=== PATIENT | female | born 1935 ===

== ENCOUNTER 2017-04-11 07:42 | Day surgery (SDC) | payer MEDICARE ==
[2017-04-05 11:02] VITALS: BMI 26.5
[2017-04-11 08:11] VITALS: TEMP 97.5
[2017-04-11] MEDS ORDERED: Propofol 10 mg/ml Inj (20 ML) ONE (09:58)
[2017-04-11] MEDS ORDERED: Lidocaine 2% Inj (20ml) ONE (09:58)
[2017-04-11] MEDS ORDERED: Sodium Chloride 0.9% 1,000 ML IV SCH (10:30)
[2017-04-11 10:41] VITALS: RESP 16
[2017-04-11 11:39] VITALS: PULSE 67; O2SAT 97
[2017-04-11 12:00] VITALS: BP 176/64
== END 2017-04-11 12:40 | disposition home or self-care (01) ==
LOC: ENDO 07:42
PROVIDERS: ATTEND Internal Medicine Gastroenterology
DX: K25.9 Gastric ulcer, unspecified as acute or chronic, without hemorrhage or perforation (principal); K29.50 Unspecified chronic gastritis without bleeding; K44.9 Diaphragmatic hernia without obstruction or gangrene; K29.80 Duodenitis without bleeding; I25.10 Atherosclerotic heart disease of native coronary artery without angina pectoris; I10 Essential (primary) hypertension; Z86.73 Personal history of transient ischemic attack (TIA), and cerebral infarction without residual deficits
CPT/HCPCS: 43235; J2704; J7040

== ENCOUNTER 2017-05-13 12:20 | Emergency (ER) | payer MEDICARE ==
[2017-05-13 12:39] VITALS: BMI 25.2
[2017-05-13 12:42] VITALS: RESP 18; TEMP 98
[2017-05-13 13:29] LABS: BASO # 0.01 K/mm3 (0.0-2.0); BASO % 0.2 % (0.0-3.0); EOS # 0.1 (0.0-0.7); EOS % 0.9 % (1.5-5.0); GRAN # 3.79 (1.4-6.5); GRAN % 67.3 % (50.0-68.0); HEMATOCRIT 41.5 % (36.0-48.0); LYMPH # 1.3 (1.2-3.4); LYMPH % 23.8 % (22.0-35.0); MEAN CELL VOLUME 89.6 fl (80.0-105.0); MEAN CORPUSCULAR HEMOGLOBIN 30.9 pg (25.0-35.0); MEAN CORPUSCULAR HGB CONC 34.5 g/dl (31.0-37.0); MEAN PLATELET VOLUME 9.6 fl (7.0-11.0); MONO # 0.4 (0.1-0.6); MONO % 7.8 % (1.0-6.0); RED CELL DISTRIBUTION WIDTH 13.3 % (11.5-14.5); WHITE BLOOD COUNT 5.6 10^3/ul (4.5-11.0)
[2017-05-13 14:13] LABS: ALB/GLOB RATIO 1.2 (1.1-1.8); ALKALINE PHOSPHATASE 101 U/L (38-126); ALT/SGPT 30 U/L (7-56); AST/SGOT 29 U/L (14-36); BILIRUBIN,TOTAL 0.3 mg/dL (0.2-1.3); BLOOD UREA NITROGEN 21 mg/dL (7-21); CALCIUM 9.3 mg/dL (8.4-10.5); CARBON DIOXIDE 31 mmol/L (21-33); CHLORIDE 99 mmol/L (98-107); GFR AFRICAN-AMERICAN > 60; GLUCOSE,RANDOM 96 mg/dL (70-110); POTASSIUM 4.3 mmol/L (3.6-5.0); SODIUM 140 mmol/L (132-148); TOTAL PROTEIN 7.8 g/dL (5.8-8.3)
[2017-05-13 14:25] LABS: TROPONIN I < 0.01 ng/mL
--- NOTE | 2017-05-13 14:30 | ED PDOC ---
Arrival/HPI - General Chief Complaint: High Blood Pressure Time Seen by Provider: 05/13/17 12:43 Historian: Patient - History of Present Illness Narrative History of Present Illness (Text): 05/13/17 14:27 A 81 year old female, whose past medical history includes hypertension, sciatica , and UTI, presents to the emergency department for elevated blood pressure and headache, which began last night. The patient admits to not monitoring her blood pressure at home and she states she hasn't taken her blood pressure medication yet today. The patient denies any chest pain, shortness of breath, dizziness, no changes in vision, or any other complaints at this time. Time/Duration: 24 hours (x last night) Symptom Onset: Sudden Symptom Course: Unchanged Activities at Onset: Light Context: Home Past Medical History - Provider Review Nursing Documentation Reviewed: Yes - Infectious Disease Hx of Infectious Diseases: None - Reproductive Menopause: Yes - Cardiac Hx Hypertension: Yes - Pulmonary Hx Respiratory Disorders: Yes Other/Comment: Sarcodosis - Neurological Hx Neurological Disorder: No - HEENT Hx HEENT Disorder: No - Renal Hx Renal Disorder: No - Endocrine/Metabolic Hx Endocrine Disorders: No - Hematological/Oncological Hx Blood Transfusions: No Hx Blood Transfusion Reaction: No - Musculoskeletal/Rheumatological Hx Musculoskeletal Disorders: No - Gastrointestinal Hx Gastrointestinal Disorders: Yes Hx Gastroesophageal Reflux: Yes - Genitourinary/Gynecological Hx Genitourinary Disorders: No - Psychiatric Hx Anxiety: Yes Hx Depression: Yes Hx Physical Abuse: No Hx Substance Use: No - Surgical History Hx Hysterectomy: Yes Hx Tonsillectomy: Yes - Anesthesia Hx Anesthesia Reactions: No Hx Malignant Hyperthermia: No - Suicidal Assessment Feels Threatened In Home Enviroment: No Family/Social History - Physician Review Nursing Documentation Reviewed: Yes Family/Social History: No Known Family HX Smoking Status: Never Smoked Hx Alcohol Use: No Hx Substance Use: No Allergies/Home Meds Allergies/Adverse Reactions: Allergies Penicillins Allergy (Intermediate, Verified 05/13/17 12:42) RASH Home Medications: Home Meds Medication Instructions Recorded Confirmed Carvedilol [Coreg] 25 mg PO DAILY 03/19/15 05/13/17 Rosuvastatin Calcium [Crestor] 10 mg PO DAILY 03/19/15 05/13/17 Clopidogrel [Plavix] 75 mg PO DAILY 04/11/17 05/13/17 Ranitidine HCl [Acid [employer]er 150] 150 mg PO BID 04/11/17 05/13/17 Valsartan [Valsartan] 320 mg PO DAILY 04/11/17 05/13/17 Alprazolam [Xanax] 0.5 mg PO BID 05/13/17 05/13/17 Ergocalciferol (Vitamin D2) 50,000 units PO QWK 05/13/17 05/13/17 [Vitamin D2] Mirtazapine [Remeron] 15 mg PO HS 05/13/17 05/13/17 amLODIPine [Norvasc] 2.5 mg PO DAILY 05/13/17 05/13/17 Review of Systems - Physician Review All systems were reviewed & negative as marked: Yes - Review of Systems Constitutional: Other (High blood pressure ). absent: Fevers Eyes: absent: Vision Changes Respiratory: absent: SOB, Cough Cardiovascular: absent: Chest Pain Gastrointestinal: absent: Abdominal Pain Neurological: Headache. absent: Dizziness Physical Exam Vital Signs Reviewed: Yes Vital Signs Temp Pulse Resp BP Pulse Ox 05/13/17 15:05 64 18 179/70 H 98 05/13/17 12:38 98 F 94 H 18 197/84 H 99 05/13/17 12:21 62 16 179/62 H 94 L Temperature: Afebrile Blood Pressure: Hypertensive Pulse: Regular Respiratory Rate: Normal Appearance: Positive for: Well-Appearing, Non-Toxic, Comfortable Pain Distress: None Mental Status: Positive for: Alert and Oriented X 3 - Systems Exam Head: Present: Atraumatic, Normocephalic Pupils: Present: PERRL Extroacular Muscles: Present: EOMI Conjunctiva: Present: Normal Mouth: Present: Moist Mucous Membranes Neck: Present: Normal Range of Motion Respiratory/Chest: Present: Clear to Auscultation, Good Air Exchange. No: Respiratory Distress, Accessory Muscle Use Cardiovascular: Present: Regular Rate and Rhythm, Normal S1, S2. No: Murmurs Abdomen: Present: Normal Bowel Sounds. No: Tenderness, Distention, Peritoneal Signs Back: Present: Normal Inspection Upper Extremity: Present: Normal Inspection. No: Cyanosis, Edema Lower Extremity: Present: Normal Inspection. No: Edema Neurological: Present: GCS=15, CN II-XII Intact, Speech Normal Skin: Present: Warm, Dry, Normal Color. No: Rashes Psychiatric: Present: Alert, Oriented x 3, Normal Insight, Normal Concentration Medical Decision Making ED Course and Treatment: 05/13/17 14:28 Impression: A 81 year old female with elevated blood pressure. Differential Diagnosis included but are not limited to: Plan: -- EKG -- Head CT -- Zofran -- Urinalysis -- Reassess and disposition Prior Visits: Notes and results from previous visits were reviewed. The patient was last seen in the emergency department on 04/27/15 for back pain. The patient was discharged home. Progress Notes: EKG: Ordered, reviewed, and independently interpreted the EKG. Rate : 64 BPM Rhythm : LBBB Interpretation : No ST-segment elevations or depressions, no T-wave inversions, normal intervals. Comparison : No previous EKG for comparison. 05/13/17 15:02 Re-evaluation: Upon re-evaluation, the patient states she is feeling much better. Labs and CT were reviewed. I will be discharging the patient with a prescription of antibiotics for current UTI. Patient is recommend to follow up with her primary doctor. - Lab Interpretations Lab Results: 05/13/17 13:15 05/13/17 13:35 Lab Results 05/13/17 14:42: Urine Color Light yellow, Urine Appearance Sl cloudy, Urine pH 7.0, Ur Specific [place] 1.015, Urine Protein Trace H, Urine Glucose (UA) Negative, Urine Ketones Negative, Urine Blood Small H, Urine Nitrate Positive H , Urine Bilirubin Negative, Urine Urobilinogen 0.2, Ur Leukocyte Esterase Small H, Urine RBC 1 - 3, Urine WBC 5 - 10, Ur Epithelial Cells 0 - 2, Urine Bacteria Many 05/13/17 13:35: Sodium 140, Potassium 4.3, Chloride 99, Carbon Dioxide 31, Anion Gap 14, BUN 21, Creatinine 0.8, Est GFR ( Amer) > 60, Est GFR (Non- Af Amer) > 60, Random Glucose 96, Calcium 9.3, Total Bilirubin 0.3, AST 29, ALT 30, Alkaline Phosphatase 101, Lactate Dehydrogenase 458, Total Creatine Kinase 35, Troponin I < 0.01, Total Protein 7.8, Albumin 4.3, Globulin 3.5, Albumin/ Globulin Ratio 1.2 05/13/17 13:15: WBC 5.6 D, RBC 4.63, Hgb 14.3, Hct 41.5, MCV 89.6, MCH 30.9, MCHC 34.5, RDW 13.3, Plt Count 237, MPV 9.6, Gran % 67.3, Lymph % (Auto) 23.8, [place] % (Auto) 7.8 H, Eos % (Auto) 0.9 L, Baso % (Auto) 0.2, Gran # 3.79, Lymph # 1.3, [place] # 0.4, Eos # 0.1, Baso # 0.01 - RAD Interpretation Radiology Orders: 05/13/17 12:52 HEAD W/O CONTRAST [CT] Stat - Medication Orders Current Medication Orders: Discontinued Medications Acetaminophen (Tylenol 325mg Tab) 975 mg PO STAT STA Stop: 05/13/17 14:55 Last Admin: 05/13/17 15:04 Dose: 975 mg Ondansetron HCl (Zofran Inj) 4 mg IVP STAT STA Stop: 05/13/17 12:53 Last Admin: 05/13/17 13:31 Dose: 4 mg - Scribe Statement The provider has reviewed the documentation as recorded by the Lolly Tijerina Provider Scribe Attestation: All medical record entries made by the Lolly were at my direction and personally dictated by me. I have reviewed the chart and agree that the record accurately reflects my personal performance of the history, physical exam, medical decision making, and the department course for this patient. I have also personally directed, reviewed, and agree with the discharge instructions and disposition. Disposition/Present on Arrival - Present on Arrival Any Indicators Present on Arrival: No History of DVT/PE: No History of Uncontrolled Diabetes: No Urinary Catheter: No History of Decub. Ulcer: No History Surgical Site Infection Following: None - Disposition Have Diagnosis and Disposition been Completed?: Yes Diagnosis: Hypertension, UTI (urinary tract infection) Disposition: HOME/ ROUTINE Disposition Time: 15:00 Condition: IMPROVED Discharge Instructions (ExitCare): Urinary Tract Infection in Women (ED), Hypertension (ED) Additional Instructions: Thank you for letting us take care of you today. Your provider was Dr. Rutledge. You were treated for high blood pressure and UTI. The emergency medical care you received today was directed at your acute symptoms. If you were prescribed any medication, please fill it and take as directed. It may take several days for your symptoms to resolve. Return to the Emergency Department if your symptoms worsen, do not improve, or if you have any other problems. Please contact your doctor or call one of the physicians/clinics you have been referred to that are listed on the Patient Visit Information form that is included in your discharge packet. Bring any paperwork you were given at discharge with you along with any medications you are taking to your follow up visit. Our treatment cannot replace ongoing medical care by a primary care provider (PCP) outside of the emergency department. Thank you for allowing the [facility] team to be part of your care today. Follow up with your primary doctor in 2-3 days for re-evaluation and further management. Prescriptions: Nitrofurantoin Macrocrystals [Macrobid] 100 mg PO BID #14 cap Referrals: Jesus Manuel Montilla MD [Primary Care Provider] - Follow up with primary Forms: [employer] (Norwegian)
--- NOTE | 2017-05-13 14:32 | CT ---
PROCEDURE: CT HEAD WITHOUT CONTRAST. HISTORY: r/o ICH COMPARISON: None available. TECHNIQUE: Axial computed tomography images were obtained through the head/brain without intravenous contrast. Radiation dose: Total exam DLP = 677.45 MGy-cm. This CT exam was performed using one or more of the following dose reduction techniques: Automated exposure control, adjustment of the mA and/or kV according to patient size, and/or use of iterative reconstruction technique. FINDINGS: HEMORRHAGE: No intracranial hemorrhage. BRAIN: Diffuse atrophy with prominence of the ventricles and sulci noted. No mass effect or edema. Intracranial atherosclerotic calcifications. 5 mm left basal ganglia hypodense focus, probable lacunar infarct. Scattered periventricular and subcortical white matter hypodensities, which are nonspecific, but often seen with chronic microvascular ischemic disease. Please note that MRI with diffusion imaging is more sensitive in the detection of acute ischemic event. VENTRICLES: No hydrocephalus. CALVARIUM: Unremarkable. PARANASAL SINUSES: Unremarkable as visualized. No significant inflammatory changes. MASTOID AIR CELLS: Unremarkable as visualized. No inflammatory changes. OTHER FINDINGS: None. IMPRESSION: Generalized atrophy. 5 mm left basal ganglia hypodense focus, probable lacunar infarct. Nonspecific white matter changes.
[2017-05-13 14:48] LABS: URINE APPEARANCE SL CLOUDY (CLEAR); URINE BILIRUBIN NEGATIVE (NEGATIVE); URINE BLOOD SMALL (NEGATIVE); URINE COLOR LIGHT YELLOW (YELLOW); URINE GLUCOSE (UA) NEGATIVE (NEGATIVE); URINE KETONE NEGATIVE (NEGATIVE); URINE LEUKOCYTE ESTERASE SMALL Leu/uL (NEGATIVE); URINE PROTEIN TRACE mg/dL (<30 mg/dL); URINE UROBILINOGEN 0.2 E.U./dL (<1 E.U./dL)
[2017-05-13 14:59] LABS: URINE BACTERIA MANY (NEG); URINE EPITHELIAL CELLS 0 - 2 /hpf (0-5)
[2017-05-13 15:06] VITALS: BP 179/70; PULSE 64; O2SAT 98
--- NOTE | 2017-05-14 01:56 | CARD ---
APPROVED REPORT EKG Measurement Heart [id number] <Conclusion> Normal sinus rhythm Left bundle branch block Abnormal ECG
== END 2017-05-13 15:23 | disposition home or self-care (01) ==
LOC: ED 12:20
DX: I10 Essential (primary) hypertension (principal); N39.0 Urinary tract infection, site not specified
CPT/HCPCS: 70450; 80053; 81001; 82550; 83615; 84484; 85025; 87086; 93005; 96374; 99284; J2405

== ENCOUNTER 2018-11-09 08:56 | Day surgery (SDC) | payer MEDICARE ==
[2018-11-09] MEDS ORDERED: Propofol 10 mg/ml Inj (20 ML) ONE (09:44)
[2018-11-09] MEDS ORDERED: Etomidate 20 mg/10ml Inj IV ONE (09:58)
[2018-11-09] MEDS ORDERED: Sodium Chloride 0.9% 1,000 ML IV SCH (10:45)
[2018-11-09 11:24] VITALS: BP 164/72; PULSE 73; RESP 16; TEMP 97.6; O2SAT 95
== END 2018-11-09 12:07 | disposition home or self-care (01) ==
LOC: ENDO 08:56
PROVIDERS: ATTEND Internal Medicine Gastroenterology
DX: K31.7 Polyp of stomach and duodenum (principal); K29.30 Chronic superficial gastritis without bleeding; K57.30 Diverticulosis of large intestine without perforation or abscess without bleeding; K62.89 Other specified diseases of anus and rectum; K64.2 Third degree hemorrhoids; K64.4 Residual hemorrhoidal skin tags; I10 Essential (primary) hypertension; Z87.11 Personal history of peptic ulcer disease; Z86.010 Personal history of colon polyps
CPT/HCPCS: 43236; 43251; 45378; 88305; 88342; J0171; J2704; J7030; J7040